=== PATIENT | female | born 1975 | race Caucasian/White ===

== ENCOUNTER 2016-09-29 16:00 | Emergency (ER) | payer OTHER ==
[~2016-09-29] VITALS: Ht 160 cm; Wt 90.0 kg
[~2016-09-29 16:00] MED LIST: ASPI-535; ENAL20TA77; METF500T4; [UNRECOGNIZED DRUG - OTHER]
[2016-09-29 16:03] VITALS: Ht 160 cm; Wt 90.0 kg
--- NOTE | 2016-09-29 17:30 | ERD ---
ER Documentation Chief Complaint Date/Time DATE: 09/29/16 TIME: 17:26 Chief Complaint 8 WEEKS WITH SPOTTING HPI This is a 41-year-old female with past medical history for diabetes mellitus type 2, A4, presenting to the emergency department with spotting while . Patient states she believes she is about 8 weeks and developed light pink spotting starting today. Patient was seen at her [facility] with Dr. Escobar today and was told to go to the ER for evaluation. No fevers or chills. No vomiting or diarrhea. No dysuria or hematuria. No urinary frequency or urinary urgency. Patient has not had an ultrasound yet to confirm . ROS All systems reviewed and are negative except as per history of present illness. Medications Home Meds Reported Medications Aspirin Ec (Aspir 81) 81 Mg Tablet. 08/11/10 Enalapril (Enalapril) 20 Mg Tablet 08/11/10 [Med For Gout] No Conflict Check 08/11/10 Metformin* (Glucophage*) 500 Mg Tab 08/11/10 Allergies Allergies: Coded Allergies: No Known Allergies (Verified Allergy, Mild, 08/11/10) PMhx/Soc History of Surgery: Yes (CARPIL TUNNEL) Anesthesia Reaction: No Hx Neurological Disorder: No Hx Respiratory Disorders: No Hx Cardiac Disorders: Yes (HTN) Hx Psychiatric Problems: No Hx Miscellaneous Medical Probl: Yes (GOUT) Hx Alcohol Use: No Hx Substance Use: No Hx Tobacco Use: Yes Smoking Status: Former smoker Physical Exam Vitals Vital Signs Date Time Temp Pulse Resp B/P Pulse Ox O2 Delivery O2 Flow Rate FiO2 09/29/16 16:03 97.7 88 18 144/83 99 Physical Exam Const: No acute distress, alert Head: Atraumatic Eyes: Normal Conjunctiva ENT: Normal External Ears, Nose and Mouth. Neck: Full range of motion..~ No meningismus. Resp: Clear to auscultation bilaterally. No wheezing, rhonchi or crackles Cardio: Regular rate and rhythm, no murmurs Abd: Soft, non tender, non distended. Normal bowel sounds Skin: No petechiae or rashes Back: No midline or flank tenderness Ext: No cyanosis, or edema Neur: Awake and alert Psych: Normal Mood and Affect Result Diagram: 09/29/16 4137 Results 24 hrs Laboratory Tests Test 09/29/16 17:35 09/29/16 17:38 White Blood Count 6.410^3/ul Red Blood Count 4.5110^6/ul Hemoglobin 12.5g/dl Hematocrit 38.3% Mean Corpuscular Volume 84.9fl Mean Corpuscular Hemoglobin 27.7pg Mean Corpuscular Hemoglobin Concent 32.6g/dl Red Cell Distribution Width 13.9% Platelet Count 16028^3/UL Mean Platelet Volume 10.6fl Neutrophils % 66.6% Lymphocytes % 24.4% Monocytes % 6.4% Eosinophils % 2.0% Basophils % 0.3% Nucleated Red Blood Cells % 0.0/100WBC Neutrophils # 4.310^3/ul Lymphocytes # 1.610^3/ul Monocytes # 0.410^3/ul Eosinophils # 0.110^3/ul Basophils # 0.010^3/ul Nucleated Red Blood Cells # 0.010^3/ul Beta HCG, Quantitative 1802.1mIU/ml Bedside Urine pH (LAB) 6.5 Bedside Urine Protein (LAB) Negative Bedside Urine Glucose (UA) Negative Bedside Urine Ketones (LAB) Negative Bedside Urine Blood 2+ Bedside Urine Nitrite (LAB) Negative Bedside Urine Leukocyte Esterase (L Negative Procedures/MDM [place] [address] Radiology Main Line: [phone] DIAGNOSTIC IMAGING REPORT Patient: EDWARD THOMAS : 1975 Age: 41 Sex: F MR #: [id number] DOS: 09/29/16 1723 Ordering MD: AILEEN JOSE NP Location: [facility] Room/Bed: PROCEDURE: US OB. CLINICAL INDICATION: Vaginal bleeding TECHNIQUE: Transabdominal and endovaginal imaging of the gravid uterus is available for review COMPARISON: None available FINDINGS: There is a single intrauterine demonstrating a heart rate of 124 bpm. The crown-rump length equals 0.67 cm, giving an estimated gestational age of 6 weeks 0 days by ultrasound criteria. A small subchorionic hemorrhage is identified. The ovaries are unremarkable. IMPRESSION: 1. Single live intrauterine with an estimated gestational age of 6 weeks 0 days by ultrasound criteria and an estimated date of delivery of 2017. 2. Small subchorionic hemorrhage. MDM: This is a 41-year-old female presenting to the emergency department with vaginal bleeding while . Patient states she is about 8 weeks . No active vomiting or pelvic pain. Patient is a A4. No history of complications at . No history of eclampsia, preeclampsia or gestational diabetes. Patient has history of type 2 diabetes and is currently taking metformin. Labs are unremarkable. No significant anemia or infection. Beta- hCG is 1802.1. OB ultrasound reviewed by radiologist as single live intrauterine with an estimated stational age of 6 weeks 0 days. Small subchorionic hemorrhage. Urine is negative for infection. Discussed findings at length with patient. Differential diagnosis includes but not limited to ectopic , threatened , missed , normal , subchorionic hemorrhage , ruptured ovarian cyst, UTI or pyelonephritis. Patient is appropriate for outpatient management. Instructed patient to follow- up with [facility] in the next 2-3 days for reassessment. Return to ED sooner for any high fever, chest pain, difficulty breathing, shortness breath, wheezing, vomiting, diarrhea, abdominal pain or any new or worsening symptoms. Patient verbalizes understanding. All questions answered at discharge. Departure Diagnosis: Primary Impression: Vaginal bleeding in patient at less than 20 weeks gestation Condition: Stable AILEEN JOSE NP Sep 29, 2016 17:30
[2016-09-29 17:34] LABS: URINE BLOOD (Dip) POC 2+ (NEGATIVE)
[2016-09-29 17:53] LABS: ADD SCAN DIFF NO
[2016-09-29 17:58] LABS: BASOPHILS % 0.3 % (0.0-2.0); EOSINOPHILS # 0.1 10^3/ul (0.0-0.5); HEMATOCRIT 38.3 % (37.0-47.0); HEMOGLOBIN 12.5 g/dl (12.0-16.0); LYMPHOCYTES # 1.6 10^3/ul (0.8-2.9); LYMPHOCYTES % 24.4 % (15.0-51.0); MEAN CORPUSCULAR HEMOGLOBIN 27.7 pg (29.0-33.0); MEAN CORPUSCULAR HGB CONC 32.6 g/dl (32.0-37.0); MEAN CORPUSCULAR VOLUME 84.9 fl (82.0-101.0); MEAN PLATELET VOLUME 10.6 fl (7.4-10.4); MONOCYTE # 0.4 10^3/ul (0.3-0.9); MONOCYTES % 6.4 % (0.0-11.0); NEUTROPHIL # 4.3 10^3/ul (1.6-7.5); NEUTROPHILS % 66.6 % (39.0-77.0); PLATELET COUNT 289 10^3/UL (140-415); RED BLOOD COUNT 4.51 10^6/ul (4.20-5.40); RED CELL DISTRIBUTION WIDTH 13.9 % (11.5-14.5); WHITE BLOOD COUNT 6.4 10^3/ul (4.8-10.8)
--- NOTE | 2016-09-29 18:49 | RADRPT ---
PROCEDURE: US OB. CLINICAL INDICATION: Vaginal bleeding TECHNIQUE: Transabdominal and endovaginal imaging of the gravid uterus is available for review COMPARISON: None available FINDINGS: There is a single intrauterine demonstrating a heart rate of 124 bpm. The crown-rump reginaldo th equals 0.67 cm, giving an estimated gestational age of 6 weeks 0 days by ultrasound criteria. A small subchorionic hemorrhage is identified. The ovaries are unremarkable. IMPRESSION: 1. Single live intrauterine with an estimated gestational age of 6 weeks 0 days by ultras ound criteria and an estimated date of delivery of 05/25/2017. 2. Small subchorionic hemorrhage. RPTAT: HH .Mishel Schultz MD, MD Date Time Electronically viewed and signed by .Mishel Schultz MD, on 09/29/2016 18:49 .G/
== END 2016-09-29 19:12 | disposition home or self-care (01) ==
LOC: FTE 16:00
DX: O20.9 Hemorrhage in early pregnancy, unspecified (principal); O10.011 Pre-existing essential hypertension complicating pregnancy, first trimester; O24.111 Pre-existing type 2 diabetes mellitus, in pregnancy, first trimester; Z3A.01 Less than 8 weeks gestation of pregnancy; Z79.82 Long term (current) use of aspirin; Z79.84 Long term (current) use of oral hypoglycemic drugs; Z87.891 Personal history of nicotine dependence
CPT/HCPCS: 36415; 76801; 76817; 81003; 84702; 85025; 86900; 86901

== ENCOUNTER 2016-10-01 15:32 | Emergency (ER) | payer OTHER ==
[~2016-10-01] VITALS: Ht 167.6 cm; Wt 127.0 kg
[2016-10-01 15:33] VITALS: Ht 167.6 cm; Wt 127.0 kg
[2016-10-01] MEDS ORDERED: ACETAMINOPHEN 325 MG TAB PO STA (15:46)
[2016-10-01 16:16] LABS: ADD SCAN DIFF NO
[2016-10-01 16:19] LABS: BASOPHILS % 0.4 % (0.0-2.0); EOSINOPHILS # 0.2 10^3/ul (0.0-0.5); EOSINOPHILS % 2.3 % (0.0-7.0); HEMATOCRIT 36.6 % (37.0-47.0); HEMOGLOBIN 12.2 g/dl (12.0-16.0); LYMPHOCYTES # 1.5 10^3/ul (0.8-2.9); MEAN CORPUSCULAR HGB CONC 33.3 g/dl (32.0-37.0); MEAN CORPUSCULAR VOLUME 83.9 fl (82.0-101.0); MEAN PLATELET VOLUME 10.5 fl (7.4-10.4); MONOCYTE # 0.4 10^3/ul (0.3-0.9); MONOCYTES % 6.2 % (0.0-11.0); NEUTROPHIL # 4.7 10^3/ul (1.6-7.5); NEUTROPHILS % 68.7 % (39.0-77.0); PLATELET COUNT 279 10^3/UL (140-415); RED BLOOD COUNT 4.36 10^6/ul (4.20-5.40); RED CELL DISTRIBUTION WIDTH 13.9 % (11.5-14.5); WHITE BLOOD COUNT 6.9 10^3/ul (4.8-10.8)
[2016-10-01 16:34] LABS: ALBUMIN 4.9 g/dl (3.3-4.9); ALBUMIN/GLOBULIN RATIO 1.48; BILIRUBIN,INDIRECT 0.1 mg/dl (0-1.1); BILIRUBIN,TOTAL 0.1 mg/dl (0.2-1.3); CALCIUM 9.7 mg/dl (8.4-10.2); CREATININE 0.74 mg/dl (0.44-1.00); POTASSIUM 3.9 mmol/L (3.5-5.1); TOTAL PROTEIN 8.2 g/dl (6.1-8.1)
[2016-10-01 16:36] LABS: ADD UMIC YES; UR ASCORBIC ACID NEGATIVE (NEGATIVE); UR BACTERIA FEW /HPF (NONE SEEN); UR BILIRUBIN (Dip) NEGATIVE (NEGATIVE); UR BLOOD (Dip) 3+ mg/dL (NEGATIVE); UR CLARITY CLOUDY (CLEAR); UR COLOR YELLOW (YELLOW); UR GLUCOSE (Dip) NEGATIVE (NEGATIVE); UR KETONES (Dip) NEGATIVE (NEGATIVE); UR LEUKOCYTE ESTERASE (Dip) 1+ Leu/ul (NEGATIVE); UR NITRITE (Dip) NEGATIVE (NEGATIVE); UR RBC > 182 /HPF (0-5); UR SPECIFIC GRAVITY (Dip) 1.023 (1.003-1.030); UR SQUAMOUS EPITHELIAL CELL FEW /HPF (FEW); UR TOTAL PROTEIN (Dip) 2+ mg/dl (NEGATIVE); UR UROBILINOGEN (Dip) NEGATIVE (NEGATIVE)
--- NOTE | 2016-10-01 16:37 | RADRPT ---
PROCEDURE: OB Ultrasound. CLINICAL INDICATION: Positive test. Vaginal bleeding. TECHNIQUE: Ultrasound of the pelvis was performed with transabdominal and transvaginal sonography in the axial and sagittal planes. COMPARISON: OB ultrasound dated 09/29/2016 which demonstrated a single live intrauterine gestation of 6 weeks 0 days gestational age by ultrasound dates. FINDINGS: The previously noted intrauterine gestational sac is no longer present. The uterus measures 10.1 x 5.5 x 7.5 cm. Endometrial thickness is 10.5 mm and the endometrium appears mildly heterogeneous. T he ovaries are not visualized. There is no uterine mass. There is no other pelvic mass or free fluid. IMPRESSION: 1. Recent spontaneous with previously noted intrauterine gestational sac no longer present . 2. No specific evidence of retained products of conception. 3. Ovaries not visualized. RPTAT: QQ .Misha Jauregui MD, Date Time Electronically viewed and signed by .Misha Jauregui MD, on 10/01/2016 16:37 .R/
[2016-10-01] MEDS ORDERED: ACET500C5 PO (16:58)
[2016-10-01] MEDS ORDERED: NITR-58 PO (17:02)
--- NOTE | 2016-10-01 17:13 | ERD ---
ER Documentation Chief Complaint Date/Time DATE: 10/01/16 TIME: 17:04 Chief Complaint vaginal bleeding with pelvic pain x 2 days 7 weeks HPI Patient is a 41-year-old female who is a 4 who presents to the ED with vaginal bleeding and cramping 2 days. She states that she was here 2 days ago however she states that the bleeding increased yesterday but has not decreased. She states that she has mild spotting right now and mild pelvic pain. Denies fever or chills. Denies abdominal pain, nausea, vomiting or diarrhea. Denies headache or dizziness. Denies leg pain or leg stiffness. Denies syncopal episode. Denies seizures or rashes. States that her OB doctor is Dr. Escobar at the [facility]. No other complaints. ROS All systems reviewed and are negative except as per history of present illness. Medications Home Meds Active Scripts Nitrofurantoin Monohyd Macrocr* (Macrobid*) 100 Mg Capsr, 100 MG PO BID for 7 Days, CAP Prov:MARISOL BAIG PA-C 10/01/16 Acetaminophen* (Tylophen*) 500 Mg Capsule, 1 CAP PO Q6H Y for PAIN AND OR ELEVATED TEMP, #20 CAP Prov:MARISOL BAIG PA-C 10/01/16 Reported Medications Aspirin Ec (Aspir 81) 81 Mg Tablet. 08/11/10 Enalapril (Enalapril) 20 Mg Tablet 08/11/10 [Med For Gout] No Conflict Check 08/11/10 Metformin* (Glucophage*) 500 Mg Tab 08/11/10 Allergies Allergies: Coded Allergies: No Known Allergies (Verified Allergy, Mild, 10/01/16) PMhx/Soc History of Surgery: Yes (CARPIL TUNNEL) Anesthesia Reaction: No Hx Neurological Disorder: No Hx Respiratory Disorders: No Hx Cardiac Disorders: Yes (HTN) Hx Psychiatric Problems: No Hx Miscellaneous Medical Probl: Yes (GOUT) Hx Alcohol Use: No Hx Substance Use: No Hx Tobacco Use: Yes Smoking Status: Former smoker Physical Exam Vitals Vital Signs Date Time Temp Pulse Resp B/P Pulse Ox O2 Delivery O2 Flow Rate FiO2 10/01/16 15:33 98.4 92 18 173/89 98 Physical Exam GENERAL: Well-developed, well-nourished female. Appears in no acute distress. HEAD: Normocephalic, atraumatic. EYES: Pupils are equally reactive bilaterally. EOMs grossly intact. No conjunctival erythema. ENT: Moist mucous membranes. No uvula deviation. No kissing tonsils. No exudates. NECK: Supple. No lymphadenopathy or thyromegaly. No meningismus. negative kernig. negative brudinski. LUNG: Clear to auscultation bilaterally. No rhonchi, wheezing, rales or coarse breath sounds. HEART: Regular rate and rhythm. No murmurs, rubs or gallops. ABDOMEN: No scars, ecchymosis or rashes noted. Soft, nontender, and nondistended. Positive bowel sounds in all four quadrants. No rebound tenderness , no guarding. (-) McBurneys point tenderness. No CVA tenderness. BACK: No midline tenderness. Extremities: Equal pulses bilaterally. No peripheral clubbing, cyanosis or edema. No unilateral leg swelling. NEUROLOGIC: Alert and oriented. Moving all four extremities. 5/5 strength in all extremities. Normal speech. Steady gait. SKIN: Normal color. Warm and dry. No rashes or lesions. Capillary refill < 2 seconds Result Diagram: 10/01/16 1610 10/01/16 1610 Results 24 hrs Laboratory Tests Test 10/01/16 16:00 10/01/16 16:10 Urine Color YELLOW Urine Clarity CLOUDY Urine pH 5.0 Urine Specific [place] 1.023 Urine Ketones NEGATIVEmg/dL Urine Nitrite NEGATIVEmg/dL Urine Bilirubin NEGATIVEmg/dL Urine Urobilinogen NEGATIVEmg/dL Urine Leukocyte Esterase 1+Tej/ul Urine Microscopic RBC > 182/HPF Urine Microscopic WBC > 182/HPF Urine Squamous Epithelial Cells FEW/HPF Urine Bacteria FEW/HPF Urine Hemoglobin 3+mg/dL Urine Glucose NEGATIVEmg/dL Urine Total Protein 2+mg/dl White Blood Count 6.910^3/ul Red Blood Count 4.3610^6/ul Hemoglobin 12.2g/dl Hematocrit 36.6% Mean Corpuscular Volume 83.9fl Mean Corpuscular Hemoglobin 28.0pg Mean Corpuscular Hemoglobin Concent 33.3g/dl Red Cell Distribution Width 13.9% Platelet Count 44256^3/UL Mean Platelet Volume 10.5fl Neutrophils % 68.7% Lymphocytes % 22.0% Monocytes % 6.2% Eosinophils % 2.3% Basophils % 0.4% Nucleated Red Blood Cells % 0.0/100WBC Neutrophils # 4.710^3/ul Lymphocytes # 1.510^3/ul Monocytes # 0.410^3/ul Eosinophils # 0.210^3/ul Basophils # 0.010^3/ul Nucleated Red Blood Cells # 0.010^3/ul Sodium Level 144mmol/L Potassium Level 3.9mmol/L Chloride Level 102mmol/L Carbon Dioxide Level 26mmol/L Anion Gap 20 Blood Urea Nitrogen 11mg/dl Creatinine 0.74mg/dl Glucose Level 104mg/dl Calcium Level 9.7mg/dl Total Bilirubin 0.1mg/dl Direct Bilirubin 0.00mg/dl Indirect Bilirubin 0.1mg/dl Aspartate Amino Transf (AST/SGOT) 15IU/L Alanine Aminotransferase (ALT/SGPT) 25IU/L Alkaline Phosphatase 44IU/L Total Protein 8.2g/dl Albumin 4.9g/dl Globulin 3.30g/dl Albumin/Globulin Ratio 1.48 Beta HCG, Quantitative 580.8mIU/ml Current Medications Medications (Trade) Dose Ordered Sig/Mary Route PRN Reason Start Time Stop Time Status Last Admin Dose Admin Acetaminophen (Tylenol Tab) 650 mg ONCE STAT PO 10/01/16 15:46 10/01/16 15:47 DC 10/01/16 16:44 Procedures/MDM ER COURSE: I kept the patient and/or family informed of laboratory and diagnostic imaging results throughout the emergency room course. EKG, MONITORS, & DIAGNOSTIC IMAGING: [place] [address] Radiology Main Line: [phone] DIAGNOSTIC IMAGING REPORT Patient: EDWARD THOMAS : 1975 Age: 41 Sex: F MR #: [id number] DOS: 10/01/16 1546 Ordering MD: MARISOL BAIG PA-C Location: [facility] Room/Bed: PROCEDURE: OB Ultrasound. CLINICAL INDICATION: Positive test. Vaginal bleeding. TECHNIQUE: Ultrasound of the pelvis was performed with transabdominal and transvaginal sonography in the axial and sagittal planes. COMPARISON: OB ultrasound dated 09/29/2016 which demonstrated a single live intrauterine gestation of 6 weeks 0 days gestational age by ultrasound dates. FINDINGS: The previously noted intrauterine gestational sac is no longer present. The uterus measures 10.1 x 5.5 x 7.5 cm. Endometrial thickness is 10.5 mm and the endometrium appears mildly heterogeneous. The ovaries are not visualized. There is no uterine mass. There is no other pelvic mass or free fluid. IMPRESSION: 1. Recent spontaneous with previously noted intrauterine gestational sac no longer present. 2. No specific evidence of retained products of conception. 3. Ovaries not visualized. RPTAT: QQ .Misha Jauregui MD, MD Date Time Electronically viewed and signed by .Misha Jauregui MD, MD on 10/01/2016 16:37 .R/ CC: MARISOL BAIG PA-C MEDICATIONS: Tylenol. Tolerated well with no adverse reaction LAB INTERPRETATION: CBC showed no evidence of systemic infection or severe anemia. CMP showed no evidence of electrolyte abnormalities, severe acidosis, alkalosis, renal failure , or liver disease. Lipase showed no evidence of acute pancreatitis. UA shows 1 + leukocytes with no nitrites. BHC.8 RH: A+ MEDICAL DECISION MAKING: This is a 41-year-old female who presents with vaginal bleeding and pelvic pain 2 days. Vital signs were reviewed. Patient is afebrile. Patient is not hypoxic. Patient is nontoxic or ill-appearing. Ultrasound shows a recent spontaneous with no gestational intrauterine sac noted. Patient is likely having a threatened . I consulted with supervising physician Dr. mack reviewed imaging studies and agrees with my medical decision making and discharge plans. Patient will be treated outpatient [facility] and to follow-up with OB. Low suspicion for ectopic , , molar , endometriosis, PID, cervicitis, septic , molar , HELLP syndrome , preeclampsia, eclampsia, placenta previa, placenta abruptia. No RhoGam is needed at this time as patient's blood is A+. Patient does have slightly elevated blood pressure however patient does not show signs of hypertensive urgency, emergency or endorgan damage. DISCHARGE: At this time, patient is stable for discharge and outpatient management with no new complaints during the ER course. Patient was sent home with copy of all imaging and laboratory studies. Patient will be discharged home with instructions to recheck for new or worsening symptoms such as fever, nausea, weakness, LOC and to follow up with primary care in the next 1-2 days. Patient was advised to return to the ER for any new or worsening symptoms. Plan was discussed and patient and/or family understands and agrees. Home instructions were given. Departure Diagnosis: Primary Impression: Threatened Condition: Stable Patient Instructions: Possible Miscarriage (Threatened ) Additional Instructions: Call your primary care doctor TOMORROW for an appointment during the next 1-2 days.See the doctor sooner or return here if your condition worsens before your appointment time. MARISOL BAIG PA-C Oct 01, 2016 17:13
== END 2016-10-01 17:38 | disposition home or self-care (01) ==
LOC: FTE 15:32
DX: O20.0 Threatened abortion (principal); O10.011 Pre-existing essential hypertension complicating pregnancy, first trimester; Z3A.01 Less than 8 weeks gestation of pregnancy; Z79.82 Long term (current) use of aspirin; Z79.84 Long term (current) use of oral hypoglycemic drugs; Z87.891 Personal history of nicotine dependence
CPT/HCPCS: 76801; 76817; 80053; 81001; 84702; 85025; Z7502; Z7610

== ENCOUNTER 2018-08-11 09:58 | Day surgery (SDC) | payer OTHER ==
[~2018-08-11] VITALS: Ht 160 cm; Wt 143.4 kg
[2018-08-11] VITALS (15 sets, daily range): BP systolic 100–144; BP diastolic 46–81; PULSE 60–89; RESP 16–31; Ht 160 cm; Wt 143.4 kg
[~2018-08-11 09:58] MED LIST changes: +ACET500C5 PO; +CEFAZOLIN 2 GM/50 ML (PMX) 50 ML IVPB SCH; +METF-849; -METF500T4; +NITR-58 PO; +SOD CHLORIDE 0.9% 1,000 ML IV SCH
[2018-08-11] MEDS ORDERED: BENA10TA4 PO (10:25)
[2018-08-11] MEDS ORDERED: MTF1000T PO (10:25)
[2018-08-11] MEDS ORDERED: BUPIVACAINE 0.25% (MPF) 30 ML INJ ONE (13:15)
[2018-08-11] MEDS ORDERED: LIDOCAINE 2% (MDV) 20 ML INJ ONE (13:22)
[2018-08-11] MEDS ORDERED: BUPIVACAINE 0.5% (SDV) 30 ML INJ ONE (13:22)
[2018-08-11] MEDS ORDERED: MIDAZOLAM 1 MG/ML 2 ML INJ ONE (13:24)
--- NOTE | 2018-08-11 13:28 | PREAC ---
Date/Time of Note Date/Time of Note DATE: 08/11/18 TIME: 13:27 Anesthesia Eval and Record Evaluation Time Pre-Procedure Interview DATE: 08/11/18 TIME: 13:27 Age 42 Sex female NPO: 8 hrs Preoperative diagnosis scalp mass x 2 Planned procedure excision of scalp mass Past Medical History Past Medical History: Includes Cardio: HTN Endo: Diabetes GI: Morbid obesity Surgery & Anesthesia Issues No known issue Meds Anticoagulation: No Beta Markel within 24 hr: No Reason Beta Markel not given: Pt. not on B-Markel Reported Medications Benazepril Hcl* (Benazepril Hcl*) 10 Mg Tablet, 10 MG PO DAILY, #30 TAB 08/11/18 Metformin* (Glucophage*) 1,000 Mg Tablet, 1000 MG PO DAILY, #30 TAB 08/11/18 Discontinued Reported Medications Aspirin Ec (Aspir 81) 81 Mg Tablet. 08/11/10 Enalapril (Enalapril) 20 Mg Tablet 08/11/10 [Med For Gout] No Conflict Check 08/11/10 Metformin* (Glucophage*) 500 Mg Tab 08/11/10 Discontinued Scripts Nitrofurantoin Monohyd Macrocr* (Macrobid*) 100 Mg Capsr, 100 MG PO BID for 7 Days, CAP Prov:MARISOL BAIG-Ivan 10/01/16 Acetaminophen* (Tylophen*) 500 Mg Capsule, 1 CAP PO Q6H PRN for PAIN AND OR ELEVATED TEMP, #20 CAP Prov:MARISOL BAIG-C 10/01/16 Current Medications Cefazolin Sodium/ Dextrose 50 ml @ 100 mls/hr OC IVPB ; Start 08/11/18 at 06:00 Sodium Chloride 1,000 ml @ 75 mls/hr [id number] IV Last administered on 08/11/18at 11:26; Admin Dose 75 MLS/HR; Start 08/10/18 at 16:00 Meds reviewed: Yes Allergies Coded Allergies: No Known Allergies (Verified Allergy, Mild, 08/11/18) Allergies Reviewed: Yes Labs/Studies Labs Reviewed: Reviewed by anesthesiologist Result Diagram: 08/11/18 1105 08/11/18 1105 Laboratory Tests 08/11/18 11:05 test: Negative Pre-procedure Exam Last vitals Vital Signs Date Temp Pulse Resp B/P (MAP) Pulse Ox O2 O2 Flow FiO2 Time Delivery Rate 08/11/18 97.7 89 16 143/81 97 Room Air 11:13 (101) Airway: Adequate mouth opening, Adequate thyromental dist Mallampati: Mallampati IV Teeth: Normal Lung: Normal Heart: Normal ASA Physical Status ASA physical status: 3 Emergency: None Pre-operative Attestations Prior to commencing anesthesia and surgery, the patient was re-evaluated, there was verification of: *The patient's identity *The results of appropriate recent lab work and preoperative vital signs *The above evaluation not changing prior to induction *Anesthetic plan, risk benefits, alternative and complications discussed with patient/family; questions answered; patient/family understands, accepts and wishes to proceed. BILL PETIT DO August 11, 2018 13:28
[2018-08-11] MEDS ORDERED: ONDANSETRON 4 MG INJ IV PRN (13:30)
[2018-08-11] MEDS ORDERED: LABETALOL HCL 20MG INJ IV PRN (13:30)
[2018-08-11] MEDS ORDERED: KETOROLAC 30 MG INJ IV PRN (13:30)
[2018-08-11] MEDS ORDERED: hydrALAzine 20 MG INJ IV PRN (13:30)
[2018-08-11] MEDS ORDERED: PROPOFOL 20 ML ONE (13:39)
[2018-08-11] MEDS ORDERED: SUCCINYLCHOLINE CHLORIDE 100 MG/5 ML SYG IV ONE (13:39)
[2018-08-11] MEDS ORDERED: LIDOCAINE 2% (SDV) 5 ML INJ ONE (13:39)
[2018-08-11] MEDS ORDERED: FENTAnyl 50 MCG/ML VIAL ONE (13:47)
[2018-08-11] MEDS ORDERED: CEFAZOLIN 1 GM INJ ONE (13:49)
[2018-08-11] MEDS ORDERED: ROCURONIUM 50 MG INJ ONE (13:49)
[2018-08-11] MEDS ORDERED: ONDANSETRON 4 MG INJ ONE (13:51)
[2018-08-11] MEDS ORDERED: PHENYLephrine (100 MCG/ML) 10ML SYG ONE (14:06)
[2018-08-11] MEDS ORDERED: BACITRACIN/POLYMYXIN 28.35 GM OINT TOP ONE (14:22)
[2018-08-11] MEDS ORDERED: HYDROCODONE/APAP (5/325) TAB PO ONE (14:30)
--- NOTE | 2018-08-11 14:34 | OPR ---
Date/Time of Note Date/Time of Note DATE: 08/11/18 TIME: 14:31 Operative Report Procedure Date: August 11, 2018 Preoperative Diagnosis right scalp mass and left scalp mass Postoperative Diagnosis same Operation/Procedure Performed 1. excision of right scalp mass 5 cm mass 5 cm incision 2. localized adjacent tissue transfer with the use of skin flaps 10 sq cm defect of right scalp 3. excision of left scalp mass 3 cm mass 3 cm incision 4. localized adjacent tissue transfer with the use of skin flaps 6 sq cm defect of left scalp 5. therapeutic injection of subcutaneous local anesthesia Surgeon see signature line [facility] none Anesthesia Type: general Estimated Blood Loss: 10 - 50 ml's Transfusion none Specimen right scalp mass left scalp mass Grafts/Implants none Complications none Pt Condition Post Procedure: stable Indications This is a 42-year-old female with a right scalp and left scalp mass. She required surgical excision. Risks alternatives benefits and personal were discussed the patient. Potential complications including but not limited to bleeding infection wound dehiscence and in particular for this operation scar alopecia. Patient was warned of these possible potential complications and she expressed understanding and consents to the operation. Procedure Description Patient is taken to the OR and prepped and draped in usual sterile fashion. Surgical time was performed. IV antibiotics given. Elliptical incision was made over the left scalp mass with a 15 blade. Dissection was cautery was taken down to the mass and the mass was circumferentially excised. Good hemostasis status. Due to tissue defect localized adjacent to his transfer with use of skin flaps was performed. Multilayer closed with interrupted 2-0 Vicryl and running 4-0 Monocryl. Therapeutic contains local anesthesia was injected at the incision site. Attention was then paid to the right scalp mass. Elliptical incision was made over the right scalp mass. Dissection with cautery skin onto the mass and the mass was circumferentially excised. Good hemostasis status. Due to the large tissue defect localization just transfer with use of skin flaps was performed. Multilayer closed with interrupted 2-0 Vicryl and running 4-0 Monocryl. Therapeutic contains local anesthesia was injected at the incision site. Hemostasis was established in both surgical sites. Bacitracin ointment and dry dressings were applied. Gwen SAN August 11, 2018 14:34
--- NOTE | 2018-08-11 14:46 | PAC ---
Date/Time of Note Date/Time of Note DATE: 08/11/18 TIME: 14:45 Post-Anesthesia Notes Post-Anesthesia Note Last documented vital signs Vital Signs Date Temp Pulse Resp B/P (MAP) Pulse Ox O2 O2 Flow FiO2 Time Delivery Rate 08/11/18 98 88 20 125/65 97 Room Air 1446 Activity: WNL Respiratory function: WNL Cardiovascular function: WNL Mental status: Baseline Pain reasonably controlled: Yes Hydration appropriate: Yes Nausea/Vomiting absent: Yes BILL PETIT DO August 11, 2018 14:46
[2018-08-11] MEDS ORDERED: ACETAMINOPHEN 1000MG/100ML IV 100 ML IVPB ONE (15:30)
== END 2018-08-11 17:36 | disposition home or self-care (01) ==
LOC: SDS 09:58
PROVIDERS: ATTEND Surgery
DX: D17.0 Benign lipomatous neoplasm of skin and subcutaneous tissue of head, face and neck (principal); I10 Essential (primary) hypertension; E11.9 Type 2 diabetes mellitus without complications; E66.9 Obesity, unspecified; E78.00 Pure hypercholesterolemia, unspecified
CPT/HCPCS: 14021; 80053; 82962; 85025; 85610; 85730; J0131; J0690; J1885; J2250; J2370; J2405; J3010; Z7610